=== PATIENT | male | born 1935 | race Caucasian/White ===

== ENCOUNTER 2016-08-14 17:21 | Inpatient (IN) | payer MEDICARE ==
[~2016-08-14] VITALS: Ht 177.8 cm; Wt 75.5 kg
[~2016-08-14 17:21] MED LIST: ASPI-973 PO; CHOL5000 PO; CLON0.1T PO; FELO2.5T8 PO; HYDR-4003 PO; OXYC5TAB72 PO; POLY17PO6 PO
[2016-08-14 17:28] VITALS: BP 133/83; PULSE 68; RESP 18; O2SAT 98
[2016-08-14 18:37] LABS: BASOPHILS % (AUTO) 0.3 % (0-3); EOSINOPHILS % (AUTO) 2.2 % (0-5); MONOCYTES % (AUTO) 7.4 % (4-12); Mean Corpuscular Hemoglobin 30.9 pg (27.0-35.0); Mean Corpuscular Volume 94.2 fL (81-100); NEUTROPHILS % (AUTO) 65.3 % (40-74); Platelet Count 263 bil/L (150-400)
[2016-08-14 18:56] LABS: Magnesium 2.3 mg/dL (1.6-2.6)
[2016-08-14 19:46] VITALS: BP 157/78; PULSE 60; RESP 14; O2SAT 98
--- NOTE | 2016-08-14 20:14 | ED.REPORT ---
HPI-General Illness Date of Service August 14, 2016 ED Provider: Da Hernández MD The pt is a 81 y/o male w/ a hx of hypertension and kidney cancer presenting to the ED complaining of confusion. He reports beginning to lose his memory last night, of what he describes as "small things". One example of this is him forgetting where the water faucet was in his own house. Aside from this, his sister noticed him normal last night and then this morning noted him to have difficulties with word recall. She states he slept most of the day which is not normal. Additionally, he has been experiencing a headache in the L temporal region which he describes as dull. Pt has been having blood pressure problems and has noted his readings to be as high as 190S. He reports Clonidine giving him BP problems and has been using Felodipine as an alternative. He denies weakness, numbness, tingling, vision changes, fever, coughs, chills, or vomiting. Nursing Notes Stated Complaint: LOSS OF BALANCE Chief Complaint: Neuro Symptoms/ Deficits Nursing Notes Reviewed: Yes Allergies: Coded Allergies: iodine (Verified Allergy, Severe, Anaphylaxis, 08/14/16) Scheduled Aspirin (Aspirin) 81 Mg Tablet 81 MG PO DAILY Cholecalciferol (Vitamin D3) (Vitamin D3) 5,000 Unit Capsule 5,000 UNIT PO DAILY Clonidine (Clonidine) 0.2 Mg Tablet 0.2 MG PO BID Felodipine ER (Felodipine ER) 10 Mg Tab.er.24h 10 MG PO HS Lisinopril (Lisinopril) 5 Mg Tablet 5 MG PO DAILY Scheduled PRN Hydrocodone-Acetaminophen 5-325 mg (Hydrocodone-Acetaminophen 5-325 mg) 1 Each Tablet 1 TABLET PO Q4H PRN PRN For Pain Polyethylene Glycol 3350 (Miralax) 17 Gm Powd.pack 17 GM PO DAILY PRN PRN For Constipation oxyCODONE (oxyCODONE) 5 Mg Tablet 5 MG PO Q4H PRN PRN For Moderate Pain General Time Seen by MD: 20:12 Chief Complaint Other (Confusion) Hx Obtained From: Patient Arrived By: Walk-in Sudden in Onset?: Yes Onset Occurred: 1 day ago Symptom Duration: Since onset Location: : Head Quality: Painful Severity: Current: Mild Associated with: Denies: Numb extremities, Vomiting, Weakness Pertinent Negative: Relieved by nothing Recent Healthcare: No recent hospitalization, Recent doctor visit TPA Administration/Criteria Stroke Thrombolytic Therapy : TPA Considered: No TPA Administered Intravenously: No, exclusion criteria (Unknown time of onset) NIH Stroke Scale Level of Consciousness: Alert and responsive (0) Ask Month & Age: 1 question right (1) Open/Close Eyes/Hand Fried Cake Maker: Performs both tasks (0) Horizontal EO Movements: None (0) Visual [place]: Complete hemianopsia (2) Facial Palsy: Normal symmetry (0) Right Arm Motor Drift (10s): No drift 10 sec (0) Left Arm Motor Drift (10s): No drift 10 sec (0) Right Leg Motor Drift (5s): No drift 5 sec (0) Left Leg Motor Drift (5s): No drift 5 sec (0) Limb Ataxia FNF/Heel-Garcia: No ataxia (0) Sensation (Arms/Legs/Face): No sensory loss (0) Language Aphasia: No aphasia, normal (0) Dysarthria: No dysarthria, normal (0) Extinction/Inattention: No exctinct/inattent (0) NIHSS Score: 3 Time NIHSS Performed: 20:24 Date NIHSS Performed: August 14, 2016 Past Medical History Past Medical History Polio Kidney cancer Reports: Hypertension Past Surgical History hiatal hernia repair 1992 eye surgery @ age 5 Reports: Tonsillectomy Family History Heart disease in father, brothers and sister Sister and brother with "open heart surgery." Smoking History Never Smoker Social History Alcohol Use: 1-3 per week Drug Use: Denies drug use Other Social History: Good social support, From out of town, Visiting locally 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 Physical Exam Vital Signs Vital Signs Date Time Temp Pulse Resp B/P Pulse Ox O2 Delivery O2 Flow Rate FiO2 08/14/16 22:11 67 18 147/82 99 Room Air 08/14/16 19:46 60 14 157/78 98 Room Air 08/14/16 17:28 36.5 68 18 133/83 98 Room Air Initial VS: Reviewed General/Constitutional: Awake, Alert Head / Eyes: Atraumatic, Normocephalic ENT: Atraumatic, Airway patent Neck: Atraumatic, Supple, Full range of motion Respiratory / Chest: Atraumatic, Breath sounds NL, Breath sounds = bilat, No rales, No rhonchi, No wheezing Cardiovascular: Heart rate NL, Regular rhythm, Heart sounds NL Back: Atraumatic, Full range of motion Skin: Atraumatic, Color NL, Warm, Dry Neurologic: Speech NL See NIH Interpretation & Diagnostics Lab Results Interpretation Result Diagram: 08/14/16 1824 08/14/16 1824 Test 08/14/16 18:24 White Blood Count 6.9th/mm3 (3.8-10.1) Red Blood Count 4.46mil/mm3 (4.40-5.80) Hemoglobin 13.8g/dL (13.8-17.2) Hematocrit 42.0% (41.0-50.0) Mean Corpuscular Volume 94.2fL (81-100) Mean Corpuscular Hemoglobin 30.9pg (27.0-35.0) Mean Corpuscular Hemoglobin Concent 32.9% (32.0-37.0) Red Cell Distribution Width 13.5% (12.3-15.4) Platelet Count 263bil/L (150-400) Neutrophils (%) (Auto) 65.3% (40-74) Lymphocytes (%) (Auto) 24.5% (14-46) Monocytes (%) (Auto) 7.4% (4-12) Eosinophils (%) (Auto) 2.2% (0-5) Basophils (%) (Auto) 0.3% (0-3) Sodium Level 135mEq/L (134-144) Potassium Level 5.0mEq/L (3.5-5.2) Chloride Level 98mEq/L (97-108) Carbon Dioxide Level 25mmol/L (18-29) Blood Urea Nitrogen 45mg/dL (8-27) Creatinine 1.96mg/dL (0.76-1.27) Estimat Glomerular Filtration Rate 35mL/min (>59) Glucose Level 171mg/dL (60-99) Calcium Level 9.5mg/dL (8.5-10.1) Magnesium Level 2.3mg/dL (1.6-2.6) Total Bilirubin 0.3mg/dL (0.0-1.2) Aspartate Amino Transf (AST/SGOT) 18U/L (0-50) Alanine Aminotransferase (ALT/SGPT) 13U/L (0-44) Alkaline Phosphatase 98U/L (25-160) Total Protein 7.5g/dL (6.4-8.4) Albumin 4.0g/dL (3.4-5.0) Triglycerides Level 175mg/dL (0-149) Cholesterol Level 185mg/dL (100-199) LDL Cholesterol, Calculated 112.000mg/dL (0-99) VLDL Cholesterol 35.000mg/dL HDL Cholesterol 38mg/dL (>39) Cholesterol/HDL Ratio 4.87 (0.0-4.4) Hold Zuñiga Top Tube Received (Received) ECG Interpretation ECG Interpretation: Rhythm Strip Interpretation : Time: 20:20 Rhythm Strip Interpretation: Interpreted by me, Rate (66), Normal sinus rhythm CT Head Interpretation IMPRESSION: 1. Focal attenuation is present in the left occipital lobe suspicious for acute to subacute ischemia. No superimposed hemorrhage. 2. Moderate atrophy and chronic microvascular ischemic changes. Dictated by: Chery Morales M.D. on 08/14/2016 at 21:27 Approved by: Chery Morales M.D. on 08/14/2016 at 21:29 Study: Head CT no contrast Interpretation / Wet Read by: Interpret - Radiologist Re-Eval/Medical Decision Med Decision/Clinical Course I discussed the case with Dr. Garcia from [facility] neurology who did not believe that MR angiogram was indicated during the night because of the odds of finding a lesion worthy of interventional radiology treatment was fleeting with low. Source of Hx: Old records Time of Eval: 20:30 Re-Evaluation/Progress Note: Pt rechecked. Informed pt of need for admission. Pt understands and agrees with plan for admission. All questions addressed. Time of Eval: 22:31 Re-Evaluation/Progress Note: Informed pt of stroke diagnosis based on CT scan. Informed pt of need to admit to hospital. All questions addressed. Consultation : Referral / Consult Name: Tyrese Wharton MD Consulted With: Hospitalist Call Returned at: 21:49 Beet Flumer: Will see patient, Agrees with plan, Accepts admit Note: Discussed pt plan. Counseled Regarding: Diagnosis, Lab results, Need for admission Discharge & Departure Primary Impression: CVA (cerebral vascular accident) CVA mechanism: unspecified Qualified Code: I63.9 - Cerebral infarction, unspecified Additional Impression: Acute kidney failure Acute renal failure type: unspecified Qualified Code: N17.9 - Acute kidney failure, unspecified Disposition: ADMITTED TO HOSPITAL Discharge Condition All VS Reviewed: Yes Referrals: Maida Palomo MD (PCP) Scribe Attestation Portions of this note were transcribed by Marek Muller and Fior Teran. I, Dr. Hernández personally performed the history, physical exam and medical decision- making; I reviewed and confirmed the accuracy of the information in the transcribed note. Signed by: Marek Muller and Thuy Wheeler, 08/14/16 and 213. copies to: Maida Palomo MD, Kirk H MD August 14, 2016 20:14 Marek Muller August 14, 2016 20:25 Fior Teran August 14, 2016 23:45
--- NOTE | 2016-08-14 21:31 | DRSVH ---
PROCEDURE: CT BRAIN WITHOUT CONTRAST ([id number]) INDICATIONS: right hemianopsia TECHNIQUE: Noncontrast 4.5 mm thick angled axial sections acquired from the foramen magnum to the vertex, with c oronal reformats. COMPARISON: None. FINDINGS: Image quality: Excellent. CSF spaces: Basal cisterns are patent. No extra-axial fluid collections. The ventricles are symmet ebony in size and shape. Brain: No intracranial bleeds or masses. There is cerebral volume loss for age, with resultant vent ricular and sulcal prominence. There are periventricular and deep white matter chronic small vessel ischemic changes. There is intracranial internal carotid artery atherosclerosis. Focal low attenuat ion is present in the left occipital lobe. Skull and face: Calvarium and visualized facial bones appear intact, without suspicious lesions. Sinuses: Visualized sinuses and mastoids are clear. IMPRESSION: 1. Focal attenuation is present in the left occipital lobe suspicious for acute to subacute ischemia. No superimposed hemorrhage. 2. Moderate atrophy and chronic microvascular ischemic changes. Dictated by: Chery Morales M.D. on 08/14/2016 at 21:27 Approved by: Chery Morales M.D. on 08/14/2016 at 21:29
[2016-08-14] MEDS ORDERED: Ondansetron 2 mg/mL 2 mL Inj IVPUSH PRN (21:55)
[2016-08-14] MEDS ORDERED: Polyethylene Glycol (PEG) 17 Gm Powder PO PRN (21:55)
[2016-08-14] MEDS ORDERED: Alum-Mag Hydrox-Simeth 30 mL Suspension PO PRN (21:55)
[2016-08-14] MEDS ORDERED: Labetalol 5 mg/mL 4 mL Inj IVPUSH PRN (21:55)
[2016-08-14 22:11] VITALS: BP 147/82; PULSE 67; RESP 18; O2SAT 99
[2016-08-14] MEDS ORDERED: FELO10TA3 PO (22:15)
[2016-08-14] MEDS ORDERED: LISI-571 PO (22:15)
[2016-08-14] MEDS ORDERED: CLON0.2T PO (22:15)
[2016-08-14 23:27] VITALS: BP 147/85; PULSE 98; RESP 20; O2SAT 98
[2016-08-14 23:45] VITALS: PULSE 73
[2016-08-15] VITALS (8 sets, daily range): BP systolic 146–174; BP diastolic 73–88; PULSE 65–72; RESP 16–20; O2SAT 97–100
[2016-08-15] MEDS: Heparin 5,000 Unit/mL Inj SUBQ SCH ×3 (01:05→16:36)
--- NOTE | 2016-08-15 01:13 | PCM.HPMED ---
Subjective Date of Service August 14, 2016 Primary Provider: Admitting Physician: Tyrese Wharton MD Primary Care Physician: Maiad Palomo MD Attending Physician: Tyrese Wharton MD Admit Status: From the Emergency Department, Full Admit, Remote Telemetry Chief Complaint: Confusion History of Present Illness: Juanjo Maya is a 81 yo male with Hypertension and Chronic Kidney disease presenting to [facility] emergency department complaining of confusion. Patient reported feeling well until yesterday morning she noticed some confusion. Patient reported it was hard for him to perform simple tasks around the house like forgetting where the water faucet was in his own house. Symptoms persisted throughout the day. He was aware of this happening and told his sister about this. He noted some deficit in his visual field on the right side. He denied any trouble with his speech and no weakness/numbness noted. He has been experiencing a headache in the L temporal region which he describes as dull. He also describes his SBP getting as high as 195. He does not take any Aspirin or Cholesterol medications currently. No previous Strokes or Myocardial infarction Patient decided to stop his clonidine completely 2 days ago despite instruction that this well be slowly weaned off. Clinic records reviewed: In June of 2014, he was found to have HTN and was started on Lisinopril 10 mg daily. His BP was well controlled until the medication was stopped due to rising of serum creatinine from 1.18 to 1.96. He was then initiated on other antihypertensive medications in which he had unpleasant reactions from them. Amlodipine caused severe LE swelling. HCTZ and metoprolol caused dizziness and syncopal episode. Patient was referred to for possible left renal artery stent placement. He ended up seeing a gauntlet pairer at . A repeat renal Duplex showed no left artery stenosis, 11.5 cm, right renal atrophy identified, 7.5 cm. Lisinopril was restarted 5 mg daily. He was able to discontinue felodipine and clonidine patch. He is now taking clonidine 0.2 mg BID and lisinopril 5 mg daily. His BP has been improved ~ 130-140/70-80. Plan from Dr Rangel was to increase lisinopril to 10 mg daily and wean off on clonidine. Case discussed with Dr Hernández, CT showed Acute on Subacute left occipital lobe ischemia. She discussed the case with [facility] neurology who recommended no TPA but admission to complete workup with a MRI without contrast Review of Systems: Pertinent positives as noted in HPI. All other systems were reviewed and are negative Allergies Coded Allergies: iodine (Verified Allergy, Severe, Anaphylaxis, 08/14/16) Home Medications From [facility], NOT YET CONFIRMED Juanjo Maya. 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 Surgical History Hiatal hernia repair 1992 Eye surgery @ age 5 Tonsillectomy Nose surgery Dental implants Family History Heart disease in father, brothers and sister Sister and brother with "open heart surgery." Father of heart attack age 64 Mother lived till 80 Social History Hx Alcohol Use: No Hx Substance Use: No Hx Tobacco Use: No Smoking Status: Never Smoker Living Arrangement: with Family (with sister (Eula)) Exam Vital Signs Vital Sign - Last Date Time Temp Pulse Resp B/P Pulse Ox O2 Delivery O2 Flow Rate FiO2 08/14/16 22:11 67 18 147/82 99 Room Air 08/14/16 17:28 36.5 Exam General: Alert, Oriented X3, Cooperative, No acute Distress Eyes: PERRLA, Scleral Anicteric Mouth: Mouth Normal, Mucous Membranes Moist/[place] Neck: Supple, no Thyromegaly, trachea central. Chest & Lungs: Clear to auscultation & percussion, No adventitious breath sounds, no crackles, no wheeze Cardiovascular: Normal S1, Normal S2, No Murmurs/Rubs/Gallops, Regular Rate/ Rhythm, (No JVD, no peripheral edema) Pulses: Radial (present and equal), Dorsalis Pedi (present and equal) Abdomen: Soft, Non-tender, Non-distended, Normoactive bowel tones. Musculoskeletal: Unremarkable. Normal range of motion, no swollen or erythematous joints Extremities: No edema, no cyanosis, no clubbing. Skin: No rashes. Warm and dry, no erythematous areas Lymphatic: Lymph nodes Cervical and Axillary not palpable. Neurological: Mental Status: Alert and oriented without slurred speech Cranial nerves: PERRL. Extraocular movements are intact with no nystagmus. The face is symmetric, tongue midline. Visual field Complete hemianopsia Motor: Normal tone. She is able to hold both arms and legs up off the bed. Good slip maker bilaterally Sensation: Intact to light touch throughout Coordination: Cerebellar testing intact Reflexes: 2 throughout, toes withdraw Gait: not tested Lab and Diagnostics Labs Laboratory Tests Test 08/14/16 18:24 White Blood Count 6.9th/mm3 (3.8-10.1) Red Blood Count 4.46mil/mm3 (4.40-5.80) Hemoglobin 13.8g/dL (13.8-17.2) Hematocrit 42.0% (41.0-50.0) Mean Corpuscular Volume 94.2fL (81-100) Mean Corpuscular Hemoglobin 30.9pg (27.0-35.0) Mean Corpuscular Hemoglobin Concent 32.9% (32.0-37.0) Red Cell Distribution Width 13.5% (12.3-15.4) Platelet Count 263bil/L (150-400) Neutrophils (%) (Auto) 65.3% (40-74) Lymphocytes (%) (Auto) 24.5% (14-46) Monocytes (%) (Auto) 7.4% (4-12) Eosinophils (%) (Auto) 2.2% (0-5) Basophils (%) (Auto) 0.3% (0-3) Sodium Level 135mEq/L (134-144) Potassium Level 5.0mEq/L (3.5-5.2) Chloride Level 98mEq/L (97-108) Carbon Dioxide Level 25mmol/L (18-29) Blood Urea Nitrogen 45mg/dL (8-27) Creatinine 1.96mg/dL (0.76-1.27) Estimat Glomerular Filtration Rate 35mL/min (>59) Glucose Level 171mg/dL (60-99) Calcium Level 9.5mg/dL (8.5-10.1) Magnesium Level 2.3mg/dL (1.6-2.6) Total Bilirubin 0.3mg/dL (0.0-1.2) Aspartate Amino Transf (AST/SGOT) 18U/L (0-50) Alanine Aminotransferase (ALT/SGPT) 13U/L (0-44) Alkaline Phosphatase 98U/L (25-160) Total Protein 7.5g/dL (6.4-8.4) Albumin 4.0g/dL (3.4-5.0) Triglycerides Level 175mg/dL (0-149) Cholesterol Level 185mg/dL (100-199) LDL Cholesterol, Calculated 112.000mg/dL (0-99) VLDL Cholesterol 35.000mg/dL HDL Cholesterol 38mg/dL (>39) Cholesterol/HDL Ratio 4.87 (0.0-4.4) Hold Zuñiga Top Tube Received (Received) Result Diagram: 08/14/16 1824 08/14/161823 X-Rays, CTs and MRIs CT BRAIN WITHOUT CONTRAST 08/14 IMPRESSION: 1. Focal attenuation is present in the left occipital lobe suspicious for acute to subacute ischemia. No superimposed hemorrhage. 2. Moderate atrophy and chronic microvascular ischemic changes. Dictated by: Chery Morales M.D. on 08/14/2016 at 21:27 Approved by: Chery Morales M.D. on 08/14/2016 at 21:29 --- Assessment & Plan Juanjo Maya is a 81 yo male with Hypertension and Chronic Kidney disease presenting to [facility] emergency department complaining of confusion. 1 Acute on Subacute left occipital lobe ischemia. Present on admission Stroke risk factors includes age, Uncontrolled Hypertension and Family history of coronary artery disease. Patient not a candidate for TPA, [facility] Neurology sprinkler helper in this decision. Location of Stroke is consistent with current symptoms - MRI brain without contrast, complete echo and Carotid ultrasound - Aspirin for antiplatelet and secondary prevention (discussed with patient daily Aspirin to prevent Strokes as well as immediately calling 911 for further Stroke symptoms in the future) - checking Lipid panel - Physical, Speech and Occupational therapy assessment 2 Acute Encephalopathy due to Stroke. Present on admission. 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 Currently at baseline renal function - avoid nephrotoxic insults and no contrast studies - Acetaminophen as needed for mild pain/fever/headache - Bowel regimen as needed - Antiemetic as needed Patient admitted under inpatient status with expected length of stay > 2 midnights for severity of present symptoms, complexities of treatment plan and risk for adverse event . Resuscitation Status: CPR: Attempt Resuscitation Tyrese Wharton MD August 14, 2016 22:53
--- NOTE | 2016-08-15 01:29 | PCM.ADCARE ---
Advance Care Planning Note Purpose of Encounter: Active Diagnoses: Chronic Kidney disease Stage 3 Hypertension with Hypertensive heart disease and kidney disease Acute Occipital stroke These active diagnoses are sufficient risk that focused discussion on advance car planning is indicated in order to allow the patient to thoughtfully consider personal goals of care and if situations arise that prevent the ability to personally give input to insure appropriate representation of their personal desires through documentation or informed surrogate decision makers Parties in Attendance: Patient and me Decisional Capacity: Good Goals of Care Determinations: I reviewed prognosis on his chronic kidney disease and some possible function decline with his current Stroke, we also discussed his desires for ongoing aggressive care, including potential intubation and mechanical ventilation as well as CPR. Also discussed who would speak on his behalf should he be unable to do so, he states his sister Eula Maya will be his proxy and power of state's attorney (he will work on the paperwork for this). He understands his conditions for his kidneys carry poor prognosis with no good treatment options available but he would wanna fight it and at least try all resuscitative measure first and then decide. CODE STATUS: Full Code Time Spent Adv.Care Planning: Total time spent [id number] in education and discussion directly related to Advance Care Plannin minutes Tyrese Wharton MD August 15, 2016 01:29
[2016-08-15 10:55] LABS: BASOPHILS % (AUTO) 0.3 % (0-3); EOSINOPHILS % (AUTO) 2.1 % (0-5); MONOCYTES % (AUTO) 8.6 % (4-12); Mean Corpuscular Hemoglobin 30.8 pg (27.0-35.0); Mean Corpuscular Volume 93.4 fL (81-100); NEUTROPHILS % (AUTO) 59.8 % (40-74); Platelet Count 260 bil/L (150-400)
[2016-08-15 11:38] LABS: Magnesium 2.3 mg/dL (1.6-2.6)
--- NOTE | 2016-08-15 13:17 | CONS ---
[address] [address] CONSULTATION REPORT PATIENT: ELIJAH GRANDA : 1935 MR#: [id number] ADMIT: 08/14/2016 JOB ID: [id number] CORRECTED REPORT: RENAL CONSULTATION: DATE OF SERVICE: 08/15/2016 HISTORY: The patient is a very pleasant, 81-year-old, white male who was admitted to [facility] for a left occipital lobe stroke. He has been seen by Dr. Palomo in the past for chronic kidney disease and hypertension. Renal consultation is being sought for further assistance with his hypertension and chronic kidney disease. He states that yesterday when he woke up, he was quite disoriented and had some mild ataxia. He also states that he had some expressive aphasia but no dysphagia. He also states that he had a right hemianopsia. In the emergency department, a CT revealed an evolving infarct in the left temporal lobe. He was subsequently admitted. This morning he states that almost all of his confusion and visual problems have resolved. He denies any numbness, paresthesia, or weakness in either extremity. His blood pressure upon admission was initially in the 150 range. He has a history of some mild chronic kidney disease and hypertension for the last several years. He was seen by Dr. Palomo initially for hypertension and he has had a subsequent workup for some mild chronic kidney disease. He also has a history of prostate cancer for which he underwent isolated beam radiation therapy. Currently he states he has not had any problems with difficulty with urination, incontinence, urgency or hesitancy. Furthermore, he denies history of any prior hematuria, proteinuria, recurrent urinary tract infections, recurrent renal lithiasis, frequent use of nonsteroidal anti-inflammatories, diabetes, rheumatoid arthritis, lupus or history of any cardiac disease. He states that prior to this event, he was quite active in his numerous activities of daily living which he is able to perform without significant problems or restriction. 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 He denies a history of any prior neurological event, seizure, asthma, emphysema, cough, wheezing, myocardial infarction, congestive heart failure, hepatitis, or other malignancies. He denies history of any thyroid illness. PAST SURGICAL HISTORY: Significant for hiatal hernia repair, eye surgery, tonsillectomy, rhinoseptoplasty, and dental implants. ALLERGIES: IODINE. SOCIAL HISTORY: He denies the use of alcohol, tobacco or illicit drugs. He lives with his sister. As noted above, he is still quite active in his numerous activities of daily living which he performs without problems or restriction. FAMILY HISTORY: Remarkable for heart disease. MEDICATIONS: At time of my evaluation, include aspirin, atorvastatin. REVIEW OF SYSTEMS: Otherwise is unremarkable for any severe headache, prior amaurosis fugax, scotomas, cough, wheezing, chest pain, shortness of breath, dyspnea on exertion, paroxysmal nocturnal dyspnea, lower extremity edema, nausea, vomiting, constipation, diarrhea, anorexia, fever, chills, or rashes. He states that over the last year he has had approximately a 25 pound weight loss; however, he states that he eats less and is quite active. PHYSICAL EXAMINATION: Revealed a well-developed, quite healthy appearing, 81-year-old, white male who was alert and oriented x3, in no distress at time of my evaluation. HEENT: Examination was unremarkable. Sclerae, cornea, and conjunctivae and extra-ocular muscles were all within normal limits. Pupils reactive. Neck is supple without adenopathy, thyromegaly or jugular venous distention. Lungs are clear to auscultation. Heart was regular and rhythmical with a soft systolic murmur. Abdomen is soft, without any tenderness, rebound, guarding, masses or hepatosplenomegaly. Extremities did not show any evidence of any clubbing, cyanosis, or edema. Skin turgor was good. There is no evidence of any rashes. Neurological exam was remarkable only for some mild circumlocution when asked specific questions. LABORATORY EXAMINATION: This morning, his white count was 6.3, hemoglobin 14.0, hematocrit 42.4. Red cell indices, platelet count and differential were normal. Sodium is 140, potassium 5.0, chloride of 100, bicarb of 24. BUN and creatinine were 40 and 2.05. Glucose was 100. liver function studies were unremarkable. Urinalysis was not obtained. IMPRESSION: 1. Hypertension with hypertensive heart disease and hypertensive nephrosclerosis. 2. Chronic kidney disease stage 3. 3. Chronic interstitial nephritis. RECOMMENDATION: I would like to keep his systolic blood pressure between 140 and 160. After several days, then we can bring it down to a more normal range. Should he require any antihypertensive medications, I would recommend oral labetalol 100 mg every 8-12 hours. I would also try to avoid clonidine at this time. Once again, I would like to thank you for allowing me to participate in the care of this most pleasant, interesting patient. I will be following him closely with you. Corrected by OSCAR 08/31/16 at 1:02pm DOS
--- NOTE | 2016-08-15 14:02 | DRSVH ---
PROCEDURE: MRI BRAIN WITHOUT CONTRAST ([id number]) INDICATIONS: stroke TECHNIQUE: Non-contrast axial T1 spin echo, axial T2 fast spin echo, sagittal and axial FLAIR, coronal T2 fast s pin echo, axial gradient echo, axial diffusion and ADC through the brain. COMPARISON: [facility], CT, CT BRAIN WO CON, 08/14/2016, 20:58. FINDINGS: Image quality: Excellent. CSF spaces: Ventricles appear symmetric in size and shape. Basal cisterns are patent. No extra-axi al fluid collections. Brain: No intracranial bleeds or mass effects. There is cerebral volume loss for age. There are pe riventricular and deep white matter chronic small vessel ischemic changes. Brainstem appears normal. Diffusion-weighted images demonstrate hyperintensity within the left occipital lobe with correspond ing hypointense ADC and hyperintense T2/FLAIR signal intensity. No associated hemorrhage. No chronic ischemic insults. Normal intravascular flow voids are present. Skull and face: Calvarial bone marrow is normal in signal. Orbits are normal. Sinuses: Sinuses and mastoids are clear. IMPRESSION: 1. Acute to subacute ischemia in the left occipital lobe without superimposed hemorrhage. 2. Mild atrophy and chronic microvascular ischemic changes. Dictated by: Chery Morales M.D. on 08/15/2016 at 13:58 Approved by: Chery Morales M.D. on 08/15/2016 at 14:01
--- NOTE | 2016-08-15 17:50 | PCM.PNMED ---
Subjective Date of Service August 15, 2016 Subjective Juanjo Maya is a 81 yo male with Hypertension and Chronic Kidney disease presenting to [facility] emergency department complaining of confusion. Currently under treatment and evaluation for a stroke. Hospital day #2. Overnight: no acute events reported. Today: Patient appears in good spirits and has minimal complaints. He does note some visual field deficit, but denies any weakness. He states that he is a bit unstable in his gait which is not normal for him. He denies any pain, shortness of breath, palpitations, or loss of consciousness. The remainder of review of systems is negative except as noted above. Exam Vital Signs Vital Sign - Last Date Time Temp Pulse Resp B/P Pulse Ox O2 Delivery O2 Flow Rate FiO2 08/15/16 16:17 37.2 16 160/88 98 Room Air 08/15/16 12:19 72 Intake and Output 08/14/16 08/14/16 08/15/16 Cumulative From/Thru 15:00 23:00 07:00 08/14/16 17:28 - 08/15/16 06:52 Intake Total 0 ml 0 ml Output Total 625 ml 625 ml Balance -625 ml -625 ml Intake Oral 0 ml 0 ml Output Urine Total 625 ml 625 ml Exam General: Alert, Oriented X3, Cooperative, No acute Distress Eyes: PERRLA, Scleral Anicteric Mouth: Mouth Normal, Mucous Membranes Moist/[place] Neck: Supple, no Thyromegaly, trachea central. Chest & Lungs: Clear to auscultation & percussion, No adventitious breath sounds, no crackles, no wheeze Cardiovascular: Normal S1, Normal S2, No Murmurs/Rubs/Gallops, Regular Rate/ Rhythm, (No JVD, no peripheral edema) Pulses: Radial (present and equal), Dorsalis Pedi (present and equal) Abdomen: Soft, Non-tender, Non-distended, Normoactive bowel tones. Musculoskeletal: Unremarkable. Normal range of motion, no swollen or erythematous joints Extremities: No edema, no cyanosis, no clubbing. Skin: No rashes. Warm and dry, no erythematous areas Lymphatic: Lymph nodes Cervical and Axillary not palpable. Neurological: Mental Status: Alert and oriented without slurred speech Cranial nerves: PERRL. Extraocular movements are intact with no nystagmus. The face is symmetric, tongue midline. Visual field Complete hemianopsia Motor: Normal tone. She is able to hold both arms and legs up off the bed. 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 IVs and Medications Medications Reviewed: Medications were reviewed in detail Lab and Diagnostics Result Diagram: 08/15/16 1047 08/15/16 1047 X-Rays, CTs and MRIs CT BRAIN WITHOUT CONTRAST 08/14 IMPRESSION: 1. Focal attenuation is present in the left occipital lobe suspicious for acute to subacute ischemia. No superimposed hemorrhage. 2. Moderate atrophy and chronic microvascular ischemic changes. Dictated by: Chery Morales M.D. on 08/14/2016 at 21:27 Approved by: Chery Morales M.D. on 08/14/2016 at 21:29 MRI BRAIN WITHOUT CONTRAST IMPRESSION: 1. Acute to subacute ischemia in the left occipital lobe without superimposed hemorrhage. 2. Mild atrophy and chronic microvascular ischemic changes. Dictated by: Chery Morales M.D. on 08/15/2016 at 13:58 Assessment & Plan Juanjo Maya is a 81 yo male with Hypertension and Chronic Kidney disease presenting to [facility] emergency department complaining of confusion. Currently under treatment and evaluation for a stroke. Hospital day #2. 1 Acute to subacute ischemia in the left occipital lobe. Present on admission. Active. Stroke risk factors includes age, Uncontrolled Hypertension and Family history of coronary artery disease. 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 Location of Stroke is consistent with current symptoms - MRI brain without contrast confirmed stroke - complete echo pending - Carotid ultrasound showing 70-90% stenosis on the right side per verbal report. - Aspirin for antiplatelet and secondary prevention (Dr. Wharton discussed with patient daily Aspirin to prevent Strokes as well as immediately calling 911 for further Stroke symptoms in the future) - LDL above goal of 70, will start patient on statin. - Physical, Speech and Occupational therapy assessment 2 Acute Encephalopathy due to Stroke. Present on admission. Resolved No other causes identified such as Infection or Metabolic derangements - high risk for delirium - avoid psychoactive medications such as Benzodiazepine and high dose narcotics 3 Uncontrolled Hypertension Suspect the patient has rebound hypertension a result of stopping Clonidine abruptly - hold antihypertensive at least for now to allow permissive hypertension for now. - Nephrology consulted to help with decision of antihypertensive agents. Per Dr. Turcios's recommendation will start patient on labetalol 100 mg every 8-12 hours tomorrow. - discuss importance of BP control with patient to avoid another Stroke and follow instructions concerning medications 4 Chronic Kidney disease Due to Hypertensive Nephrosclerosis. Currently at baseline renal function - avoid nephrotoxic insults and no contrast studies - Acetaminophen as needed for mild pain/fever/headache - Bowel regimen as needed - Antiemetic as needed Disposition: Anticipate patient can be discharged tomorrow or the day after once his studies are completed and his blood pressure is controlled. VTE Mechanical Devices: Intermittant Pneumatic CD Resuscitation Status: CPR: Attempt Resuscitation Attending Statement Patient was seen and examined with Dr. Barclay. Chart was reviewed and agree with the above progress note. Colette Barclay DO August 15, 2016 17:39 Robbi Wu MD August 15, 2016 19:22
[2016-08-16] MEDS: Heparin 5,000 Unit/mL Inj SUBQ SCH ×3 (01:42→16:54)
[2016-08-16 03:36] LABS: BASOPHILS % (AUTO) 0.4 % (0-3); EOSINOPHILS % (AUTO) 5.5 % (0-5); MONOCYTES % (AUTO) 11.2 % (4-12); Mean Corpuscular Hemoglobin 30.9 pg (27.0-35.0); Mean Corpuscular Volume 92.9 fL (81-100); NEUTROPHILS % (AUTO) 49.8 % (40-74); Platelet Count 252 bil/L (150-400)
[2016-08-16 03:56] LABS: ERYTHROCYTE SEDIMENTATION RATE 32 mm/hr (0-30)
[2016-08-16 03:59] LABS: Magnesium 2.2 mg/dL (1.6-2.6); Phosphorus 3.7 mg/dL (2.5-4.9)
[2016-08-16 04:58] VITALS: BP 149/85; PULSE 81; RESP 18; O2SAT 99
[2016-08-16 07:46] VITALS: BP 173/98; PULSE 73; RESP 18; O2SAT 99
[2016-08-16 10:36] VITALS: PULSE 68
[2016-08-16 11:40] VITALS: BP 151/84; PULSE 76; RESP 18; O2SAT 98
--- NOTE | 2016-08-16 11:56 | DRSVH ---
PROCEDURE: US BILATERAL DUPLEX DOPPLER IMAGING OF THE CAROTIDS ([id number]) INDICATIONS: stroke TECHNIQUE: Color and pulse Doppler interrogation was performed of both carotid systems, with image documentation and velocity measurements. COMPARISON: [facility], , [facility] [employer], 03/17/2016, 14:07. FINDINGS: All stenosis calculations are based on NASCET criteria. Right side: Brachial blood pressure: 147/82 mm Hg. Common Carotid Artery(Distal) PSV: 104.80 cm/s Internal Carotid Artery PSV- Proximal: 262.20 cm/s Mid-lon.90 cm/s Distal: 108 cm/s EDV - Proximal: 95.50 cm/s Mid-lon.20 cm/s Distal: 45.30 cm/s External Carotid Artery(Proximal) PSV: 170.40 cm/s, 168.30 cm/s ICA/CCA PSV ratio: 3.1 Goodson scale imaging description: Moderate atheromatous plaque Percent internal carotid artery stenosis: >70% . Vertebral artery: Flow direction is antegrade. Left side: Brachial blood pressure: Not obtained Common Carotid Artery(Distal) PSV: 84.80 cm/s Internal Carotid Artery PSV - Proximal: 183.20 cm/s Mid-lon.10 cm/s Distal: 92.50 cm/s EDV - Proximal: 33.80 cm/s Mid-lon.50 cm/s Distal: 18.30 cm/s External Carotid Artery(Proximal) PSV: 59.60 cm/s ICA/CCA PSV ratio: 2.2 Goodson scale imaging description: Moderate atheromatous plaque Percent internal carotid artery stenosis: 50-69% . Vertebral artery: Flow direction is antegrade. IMPRESSION: 1. There is greater than 70% stenosis in the right internal carotid artery via NASCET criteria. 2. There is 50-69% stenosis via NASCET criteria. 3. Findings discussed via telephone [phone] at 7:55 AM on 08/15/[address] Wu. Dictated by: Demetri Felder M.D. on 08/15/2016 at 7:47 Approved by: Demetri Felder M.D. on 08/15/2016 at 7:54
[2016-08-16 15:40] VITALS: BP 147/80; PULSE 79; RESP 18; O2SAT 99
--- NOTE | 2016-08-16 16:54 | PCM.PNMED ---
Subjective Date of Service August 16, 2016 Subjective Juanjo Maya is a 81 yo male with Hypertension and Chronic Kidney disease presenting to [facility] emergency department complaining of confusion. Currently under treatment and evaluation for a stroke. Hospital day #3. Overnight: No acute events reported. Today: The patient notes that he is doing much better today. He notes that his gait is significantly improved but his visual field deficit is still present and unchanged. He denies any pain, shortness of breath, palpitations, or loss of consciousness. The remainder of review of systems is negative except as noted above. Exam Vital Signs Vital Sign - Last Date Time Temp Pulse Resp B/P Pulse Ox O2 Delivery O2 Flow Rate FiO2 08/16/16 13:58 Room Air 08/16/16 11:40 36.6 76 18 151/84 98 Intake and Output 08/15/16 08/15/16 08/16/16 Cumulative From/Thru 14:59 22:59 06:59 08/14/16 17:28 - 08/16/16 05:11 Intake Total 440 ml 626 ml 1066 ml Output Total 500 ml 400 ml 1525 ml Balance -60 ml 226 ml -459 ml Intake Oral 440 ml 626 ml 1066 ml Output Urine Total 500 ml 400 ml 1525 ml Exam General: Alert, Oriented X3, Cooperative, No acute Distress Eyes: PERRLA, Scleral Anicteric Mouth: Mouth Normal, Mucous Membranes Moist/[place] Neck: Supple, no Thyromegaly, trachea central. Chest & Lungs: Clear to auscultation & percussion, No adventitious breath sounds, no crackles, no wheeze Cardiovascular: Normal S1, Normal S2, No Murmurs/Rubs/Gallops, Regular Rate/ Rhythm, (No JVD, no peripheral edema) Pulses: Radial (present and equal), Dorsalis Pedi (present and equal) Abdomen: Soft, Non-tender, Non-distended, Normoactive bowel tones. Musculoskeletal: Unremarkable. Normal range of motion, no swollen or erythematous joints Extremities: No edema, no cyanosis, no clubbing. Skin: No rashes. Warm and dry, no erythematous areas Lymphatic: Lymph nodes Cervical and Axillary not palpable. Neurological: Mental Status: Alert and oriented without slurred speech Cranial nerves: PERRL. Extraocular movements are intact with no nystagmus. The face is symmetric, tongue midline. Visual field Complete hemianopsia with loss of peripheral vision on the right. Normal tone of bilateral upper extremities. No gait deficit reported. IVs and Medications Medications Reviewed: Medications were reviewed in detail Lab and Diagnostics Result Diagram: 08/16/1631908/16/16319 X-Rays, CTs and MRIs CT BRAIN WITHOUT CONTRAST 08/14 IMPRESSION: 1. Focal attenuation is present in the left occipital lobe suspicious for acute to subacute ischemia. No superimposed hemorrhage. 2. Moderate atrophy and chronic microvascular ischemic changes. Dictated by: Chery Morales M.D. on 08/14/2016 at 21:27 Approved by: Chery Morales M.D. on 08/14/2016 at 21:29 MRI BRAIN WITHOUT CONTRAST IMPRESSION: 1. Acute to subacute ischemia in the left occipital lobe without superimposed hemorrhage. 2. Mild atrophy and chronic microvascular ischemic changes. Dictated by: Chery Morales M.D. on 08/15/2016 at 13:58 US BILATERAL DUPLEX DOPPLER IMAGING OF THE CAROTIDS IMPRESSION: 1. There is greater than 70% stenosis in the right internal carotid artery via NASCET criteria. 2. There is 50-69% stenosis via NASCET criteria. 3. Findings discussed via telephone [phone] at 7:55 AM on 08/15/[address] Wu. Dictated by: Demetri Felder M.D. on 08/15/2016 at 7:47 Assessment & Plan Juanjo Maya is a 81 yo male with Hypertension and Chronic Kidney disease presenting to [facility] emergency department complaining of confusion. Currently under treatment and evaluation for a stroke. Hospital day #2. 1 Acute to subacute ischemia in the left occipital lobe. Present on admission. Active. Stroke risk factors includes age, Uncontrolled Hypertension and Family history of coronary artery disease. 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 Location of Stroke is consistent with current symptoms - MRI brain without contrast confirmed stroke - complete echo pending - Carotid ultrasound showing >70% stenosis on the right side. Patient will need outpatient consultation with vascular surgery. - Aspirin for antiplatelet and secondary prevention (Dr. Wharton discussed with patient daily Aspirin to prevent Strokes as well as immediately calling 911 for further Stroke symptoms in the future) - LDL above goal of 70, will start patient on statin. - Physical, Speech and Occupational therapy assessments completed 2 Acute Encephalopathy due to Stroke. Present on admission. Resolved No other causes identified such as Infection or Metabolic derangements - The patient is at high risk for delirium - Continue to avoid psychoactive medications such as Benzodiazepine and high dose narcotics 3 Uncontrolled Hypertension Suspect the patient has rebound hypertension a result of stopping Clonidine abruptly - Nephrology consulted to help with decision of antihypertensive agents. Per Dr. Turcios's recommendation will start patient on labetalol 100 mg every 12 hours today - We have discussed the importance of BP control with patient to avoid another Stroke and follow instructions concerning medications, he verbalizes understanding. 4 Chronic Kidney disease Due to Hypertensive Nephrosclerosis. Currently at baseline renal function - We will avoid nephrotoxic insults and no contrast studies - Acetaminophen as needed for mild pain/fever/headache - Bowel regimen as needed - Antiemetic as needed Disposition: Anticipate patient can be discharged tomorrow once his studies are completed and his blood pressure is controlled. Pain Evaluation: Adequate Pain Control VTE Mechanical Devices: Intermittant Pneumatic CD Resuscitation Status: CPR: Attempt Resuscitation Attending Statement Patient was seen and examined with Dr. Barclay. Chart reviewed and agree with the above progress note. Colette Barclay DO August 16, 2016 16:48 Robbi Wu MD August 16, 2016 19:42
--- NOTE | 2016-08-16 18:32 | PCM.PNNEPH ---
Subjective Date of Service August 16, 2016 Subjective Patient has had some mild improvement but still has persistent hemianopsia. His systolic blood pressures have ranged 140 and 170. He denies any headache, chest pain, shortness of breath, nausea or vomiting. This morning his sodium is 139, potassium 4.5, chloride 101, bicarbonate 25, BUN and creatinine were 41.77. His sedimentation rate is 32 word echocardiogram has been ordered. Doppler carotid artery shows a greater than 70% stenosis of the right internal carotid artery and 50-60% stenosis of the left carotid artery. Exam Vital Signs Vital Sign - Last Date Time Temp Pulse Resp B/P Pulse Ox O2 Delivery O2 Flow Rate FiO2 08/16/16 13:58 Room Air 08/16/16 11:40 36.6 76 18 151/84 98 Intake and Output 08/15/16 08/15/16 08/16/16 Cumulative From/Thru 15:00 23:00 07:00 08/14/16 17:28 - 08/16/16 05:11 Intake Total 440 ml 626 ml 1066 ml Output Total 500 ml 400 ml 1525 ml Balance -60 ml 226 ml -459 ml Intake Oral 440 ml 626 ml 1066 ml Output Urine Total 500 ml 400 ml 1525 ml Exam Neck is supple without adenopathy, thyromegaly, or jugular venous distention. Lungs were clear to auscultation. Heart is regular and rhythmical with a soft systolic murmur. Abdomen is soft without any tenderness, rebound, guarding, masses, or hepatosplenomegaly. Reason for any evidence of any clubbing, cyanosis, or edema. Skin turgor is good and there is no evidence of any rashes. Lab and Diagnostics Result Diagram: 08/16/16 0320 08/16/16 0320 X-Rays, CTs and MRIs CT BRAIN WITHOUT CONTRAST 08/14 IMPRESSION: 1. Focal attenuation is present in the left occipital lobe suspicious for acute to subacute ischemia. No superimposed hemorrhage. 2. Moderate atrophy and chronic microvascular ischemic changes. Dictated by: Chery Morales M.D. on 08/14/2016 at 21:27 Approved by: Chery Morales M.D. on 08/14/2016 at 21:29 MRI BRAIN WITHOUT CONTRAST IMPRESSION: 1. Acute to subacute ischemia in the left occipital lobe without superimposed hemorrhage. 2. Mild atrophy and chronic microvascular ischemic changes. Dictated by: Chery Morales M.D. on 08/15/2016 at 13:58 US BILATERAL DUPLEX DOPPLER IMAGING OF THE CAROTIDS IMPRESSION: 1. There is greater than 70% stenosis in the right internal carotid artery via NASCET criteria. 2. There is 50-69% stenosis via NASCET criteria. 3. Findings discussed via telephone [phone] at 7:55 AM on 08/15/[address] Wu. Dictated by: Demetri Felder M.D. on 08/15/2016 at 7:47 Plan Impression Impression #1 TIA #2 hypertension with hypertensive heart disease and hypertensive sclerosis #360 daily stage III Recommendations #104 in May echocardiogram. I would also like to start lisinopril 5 mg at at bedtime to begin this evening. Jermaine Turcios DO August 16, 2016 18:32
[2016-08-16 21:03] VITALS: BP 149/90; PULSE 70; RESP 18; O2SAT 98
[2016-08-17] VITALS (7 sets, daily range): BP systolic 138–156; BP diastolic 86–91; PULSE 63–71; RESP 16–18; O2SAT 97–99
[2016-08-17] MEDS: Heparin 5,000 Unit/mL Inj SUBQ SCH ×3 (00:38→16:30)
--- NOTE | 2016-08-17 11:57 | DRSVH ---
[facility] [address] [place] [address] Echocardiogram Report Name: ELIJAH GRANDA DStudy Date: 08/17/2016 Height: 70 in Hospital Exam Location: [facility] Weight: 166 lb Gender: Male BSA: 1.9 m2 : 1935 Age: 81 yrs BP: 156/88 mmHg Reason For Study: Stroke Ordering Physician: Performed By: [facility] Interpretation Summary The left ventricle is normal in size. Left ventricular systolic function is normal without focal wall motion abnormalities. The ejection fraction is estimated to be 60-65%. Assessment of diastolic parameters indicates a relaxation abnormality of the left ventricle, consistent with normal filling pressures. The right ventricle is normal in size and function. Pulmonary artery pressures cannot be estimated because of the lack of a measurable TR jet velocity. Both atria are normal in size. There is no Doppler evidence for an interatrial shunt. There is no significant valvular heart disease. The aortic root is normal size. No obvious evidence source for cardioembolic CVA/TIA. Procedure: A two-dimensional transthoracic echocardiogram with color flow and Doppler was performed. The study quality was technically adequate. There is no prior echocardiogram noted for this patient. The patient was in normal sinus rhythm during the exam. Left Ventricle: The left ventricle is normal in size. There is normal left ventricular wall thickness. Left ventricular systolic function is normal without focal wall motion abnormalities. The ejection fraction is estimated to be 60-65%. Spectral Doppler of the mitral valve is reversed, with an E/A wave ratio < 0.8. Assessment of diastolic parameters indicates a relaxation abnormality of the left ventricle, consistent with normal filling pressures. Right Ventricle: The right ventricle is normal in size and function. Atria: Both atria are normal in size. There is no Doppler evidence for an interatrial shunt. Mitral Valve: There is mild mitral annular calcification. There is trace mitral regurgitation. Aortic Valve: The aortic valve is not well visualized. The aortic valve is mildly calcified. There is no aortic valve stenosis. No aortic regurgitation is present. Tricuspid Valve: The tricuspid valve is normal in structure and function. There is a trace or physiologic amount of tricuspid regurgitation. Pulmonary artery pressures cannot be estimated because of the lack of a measurable TR jet velocity. Pulmonic Valve: The pulmonic valve is normal in structure and function. The pulmonic valve is best visualized from subcostal view. There is trace pulmonic regurgitation. There is no significant valvular heart disease. Great Vessels: The aortic root is normal size. The ascending aorta is mildly enlarged. The aortic arch is normal in size. The IVC is of normal diameter and collapses less than 50% with a sniff. This suggests a right atrial pressure of 8 mm Hg. Pericardium/ Pleura There is no pericardial effusion. MMode/2D Measurements & Calculations LVIDd: 4.7 cm RA long axis LVOT diam: 2.1 cm LVIDs: 2.5 cm LA A2 area: 15.6 cm Ao root diam FS: 47.1 % LA A4 area: 17.0 cm RA area IVSd: 1.0 cm LA length (vol) Aortic Jxn: 2.5 cm LVPWd: 0.92 cm : 13.0 cm asc Aorta Diam LA vol: 42.9 ml RA vol LA vol index : 32.5 ml Ao Arch Diam (Prox RA Trans): 2.7 cm : 16.8 mm2 IVC diam: 1.5 cm LV chaudhary. diameter/BSA LV sys. diameter/BSA RVD1 (basal) (cm/m^2): 2.5 (cm/m^2): 1.3 Doppler Measurements & Calculations Ao V2 max MV E max yifan MV E/A: 0.66 PA V2 max : 188.5 cm/sec : 70.4 cm/sec Med Peak E' Yifan : 125.0 cm/sec Ao max PG MV A max yifan PA mean PG : 14.2 mmHg : 107.1 cm/sec E/E' med: 11.9 Ao mean PG MV P1/2t: 101.1 msec Lat Peak E' Yifan PA Accel Time : 0.06 sec LVOT Max Yifan E/E' lat: 8.1 : 106.8 cm/sec E/e' average BILL(I,D): 2.0 cm sev ratio MV dec time MV P1/2t max yifan Ao V2 mean LV V1 max PG : 0.35 sec : 123.5 cm/sec MVA(P1/2t): 2.2 cm2 Ao V2 VTI: 37.2 cm LV V1 VTI BILL(V,D): 2.0 cm2 : 20.9 cm PA V2 mean BILL indexed to BSA : 82.8 cm/sec (cm^2/m^2): 1.0 Reading Physician:CLAUDIO
[2016-08-17 13:08] LABS: RNP Antibodies 0.4 AI (0.0-0.9)
--- NOTE | 2016-08-17 15:30 | PCM.PNNEPH ---
Subjective Date of Service August 17, 2016 Subjective The patient's blood pressure was somewhat improved. Neurologically he is unchanged. He denies any headache, chest pain or shortness of breath. Echocardiogram revealed an ejection fraction of 6065% with diastolic dysfunction. Exam Vital Signs Vital Sign - Last Date Time Temp Pulse Resp B/P Pulse Ox O2 Delivery O2 Flow Rate FiO2 08/17/16 08:20 36.4 69 16 156/88 99 08/17/16 05:25 Room Air Intake and Output 08/16/16 08/16/16 08/17/16 Cumulative From/Thru 14:59 22:59 06:59 08/14/16 17:28 - 08/17/16 05:25 Intake Total 300 ml 1366 ml Output Total 0 ml 1525 ml Balance 300 ml -159 ml Intake Oral 300 ml 1366 ml Output Urine Total 0 ml 1525 ml Exam Neck is supple without adenopathy, thyromegaly, or trigger venous distention. Lungs are clear to auscultation. Heart was regular and rhythmical with a soft systolic murmur. Abdomen soft without any tenderness rebound guarding masses or hepatosplenomegaly. Extremities show any evidence of any clubbing, cyanosis , or edema. Skin turgor is good. Lab and Diagnostics Result Diagram: 08/16/16 0320 08/17/16 0734 X-Rays, CTs and MRIs CT BRAIN WITHOUT CONTRAST 08/14 IMPRESSION: 1. Focal attenuation is present in the left occipital lobe suspicious for acute to subacute ischemia. No superimposed hemorrhage. 2. Moderate atrophy and chronic microvascular ischemic changes. Dictated by: Chery Morales M.D. on 08/14/2016 at 21:27 Approved by: Chery Morales M.D. on 08/14/2016 at 21:29 MRI BRAIN WITHOUT CONTRAST IMPRESSION: 1. Acute to subacute ischemia in the left occipital lobe without superimposed hemorrhage. 2. Mild atrophy and chronic microvascular ischemic changes. Dictated by: Chery Morales M.D. on 08/15/2016 at 13:58 US BILATERAL DUPLEX DOPPLER IMAGING OF THE CAROTIDS IMPRESSION: 1. There is greater than 70% stenosis in the right internal carotid artery via NASCET criteria. 2. There is 50-69% stenosis via NASCET criteria. 3. Findings discussed via telephone [phone] at 7:55 AM on 08/15/[address] Jazmin. Dictated by: Demetri Felder M.D. on 08/15/2016 at 7:47 Plan Impression Impression #1 hypertension with hypertensive heart disease hypertensive nephrosclerosis #2 CK D stage III #3 chronic interstitial nephritis Recommendations #1 I would like to increase his lisinopril to 10 mg at bedtime. Jermaine Turcios DO August 17, 2016 15:30
--- NOTE | 2016-08-17 16:53 | PCM.DIMED ---
Discharge Instructions Date of Service August 17, 2016 Dates of Hospitalization August 14, 2016 at 22:17 Discharge Diagnosis Discharge Diagnosis Occipital lobe CVA Diet Heart Healthy Activity No restrictions (The patient may resume usual activities gradually as tolerated. ) Call your provider Fever or Chills, Shortness of breath, Bleeding, Chest pain, Vomitting, Excessive diarrhea, Weakness (unilateral) Patient Instructions Follow-up Provider: [facility] Follow-up with PCP in: 1 week Provider: Maida Palomo MD Follow-up in: 2 weeks (The patient may need referral to a vascular specialist for possible right carotid endarterectomy.) Robbi Wu MD August 17, 2016 16:53
[2016-08-17] MEDS ORDERED: ATOR10TA66 PO (16:55)
[2016-08-17] MEDS ORDERED: LISI-571 PO (16:55)
[2016-08-17] MEDS ORDERED: LABE100T4 PO (16:55)
--- NOTE | 2016-08-17 22:02 | PCM.DC.MED ---
Discharge Summary Date of Service August 17, 2016 Dates of Hospitalization Date of Hospital Admission August 14, 2016 at 22:17 Date of Discharge: August 17, 2016 Providers: Admitting Physician: Tyrese Wharton MD Primary Care Physician: Maida Palomo MD Attending Physician: Tyrese Wharton MD Diagnosis at Time of Discharge Diagnosis at Time of Discharge Occipital lobe CVA Procedures XRay, CTs & MRIs CT BRAIN WITHOUT CONTRAST 08/14 IMPRESSION: 1. Focal attenuation is present in the left occipital lobe suspicious for acute to subacute ischemia. No superimposed hemorrhage. 2. Moderate atrophy and chronic microvascular ischemic changes. Dictated by: Chery Morales M.D. on 08/14/2016 at 21:27 Approved by: Chery Morales M.D. on 08/14/2016 at 21:29 MRI BRAIN WITHOUT CONTRAST IMPRESSION: 1. Acute to subacute ischemia in the left occipital lobe without superimposed hemorrhage. 2. Mild atrophy and chronic microvascular ischemic changes. Dictated by: Chery Morales M.D. on 08/15/2016 at 13:58 US BILATERAL DUPLEX DOPPLER IMAGING OF THE CAROTIDS IMPRESSION: 1. There is greater than 70% stenosis in the right internal carotid artery via NASCET criteria. 2. There is 50-69% stenosis via NASCET criteria. 3. Findings discussed via telephone [phone] at 7:55 AM on 08/15/[address] Wu. Dictated by: Demetri Felder M.D. on 08/15/2016 at 7:47 Brief History Juanjo Maya is a 81 yo male with Hypertension and Chronic Kidney disease presenting to [facility] emergency department complaining of confusion. Patient reported feeling well until yesterday morning she noticed some confusion. Patient reported it was hard for him to perform simple tasks around the house like forgetting where the water faucet was in his own house. Symptoms persisted throughout the day. He was aware of this happening and told his sister about this. He noted some deficit in his visual field on the right side. He denied any trouble with his speech and no weakness/numbness noted. He has been experiencing a headache in the L temporal region which he describes as dull. He also describes his SBP getting as high as 195. He does not take any Aspirin or Cholesterol medications currently. No previous Strokes or Myocardial infarction Patient decided to stop his clonidine completely 2 days ago despite instruction that this well be slowly weaned off. Clinic records reviewed: In June of 2014, he was found to have HTN and was started on Lisinopril 10 mg daily. His BP was well controlled until the medication was stopped due to rising of serum creatinine from 1.18 to 1.96. He was then initiated on other antihypertensive medications in which he had unpleasant reactions from them. Amlodipine caused severe LE swelling. HCTZ and metoprolol caused dizziness and syncopal episode. Patient was referred to for possible left renal artery stent placement. He ended up seeing a hemstitching machine operator at . A repeat renal Duplex showed no left artery stenosis, 11.5 cm, right renal atrophy identified, 7.5 cm. Lisinopril was restarted 5 mg daily. He was able to discontinue felodipine and clonidine patch. He is now taking clonidine 0.2 mg BID and lisinopril 5 mg daily. His BP has been improved ~ 130-140/70-80. Plan from Dr Rangel was to increase lisinopril to 10 mg daily and wean off on clonidine. Case discussed with Dr Hernández, CT showed Acute on Subacute left occipital lobe ischemia. She discussed the case with [place] neurology who recommended no TPA but admission to complete workup with a MRI without contrast Hospital Course Juanjo Maya is a 81 yo male with Hypertension and Chronic Kidney disease presenting to [facility] emergency department complaining of confusion. Currently under treatment and evaluation for a stroke. Hospital day #2. 1 Acute to subacute ischemia in the left occipital lobe. Present on admission. Active. Stroke risk factors includes age, Uncontrolled Hypertension and Family history of coronary artery disease. Patient not a candidate for TPA, [place] Neurology ward helper in this decision. Location of Stroke is consistent with current symptoms - MRI brain without contrast confirmed stroke - complete echo was unremarkable - Carotid ultrasound showing >70% stenosis on the right side. Patient will need outpatient consultation with vascular surgery. - Aspirin for antiplatelet and secondary prevention (Dr. Wharton discussed with patient daily Aspirin to prevent Strokes as well as immediately calling 911 for further Stroke symptoms in the future) - LDL above goal of 70, will start patient on statin. - Physical, Speech and Occupational therapy assessments completed 2 Acute Encephalopathy due to Stroke. Present on admission. Resolved No other causes identified such as Infection or Metabolic derangements - The patient is at high risk for delirium - Continue to avoid psychoactive medications such as Benzodiazepine and high dose narcotics 3 Uncontrolled Hypertension Suspect the patient has rebound hypertension a result of stopping Clonidine abruptly - Nephrology consulted to help with decision of antihypertensive agents. Per Dr. Turcios's recommendation we have started the patient on labetalol 100 mg every [address] Turcios also increase the patient's lisinopril from 5 mg a day to 10 mg by mouth daily at bedtime. - We have discussed the importance of BP control with patient to avoid another Stroke and follow instructions concerning medications, he verbalizes understanding. 4 Chronic Kidney disease Due to Hypertensive Nephrosclerosis. Currently at baseline renal function - We will avoid nephrotoxic insults and no contrast studies - Acetaminophen as needed for mild pain/fever/headache - Bowel regimen as needed - Antiemetic as needed Disposition: Patient will be discharged home today. He understands the importance of taking his medications. Exam Vital Signs (Last) Date Time Temp Pulse Resp B/P Pulse Ox O2 Delivery O2 Flow Rate FiO2 08/17/16 15:30 36.6 66 18 142/86 98 Room Air Exam General: Alert, Oriented X3, Cooperative, No acute Distress Eyes: PERRLA, Scleral Anicteric Mouth: Mouth Normal, Mucous Membranes Moist/Prichard Neck: Supple, no Thyromegaly, trachea central. Chest & Lungs: Clear to auscultation & percussion, No adventitious breath sounds, no crackles, no wheeze Cardiovascular: Normal S1, Normal S2, No Murmurs/Rubs/Gallops, Regular Rate/ Rhythm, (No JVD, no peripheral edema) Pulses: Radial (present and equal), Dorsalis Pedi (present and equal) Abdomen: Soft, Non-tender, Non-distended, Normoactive bowel tones. Musculoskeletal: Unremarkable. Normal range of motion, no swollen or erythematous joints Extremities: No edema, no cyanosis, no clubbing. Skin: No rashes. Warm and dry, no erythematous areas Lymphatic: Lymph nodes Cervical and Axillary not palpable. Neurological: Mental Status: Alert and oriented without slurred speech Cranial nerves: PERRL. Extraocular movements are intact with no nystagmus. The face is symmetric, tongue midline. Visual field Complete hemianopsia with loss of peripheral vision on the right. Normal tone of bilateral upper extremities. No gait deficit reported. Test 08/14/16 18:24 08/14/16 23:25 08/16/16 03:20 08/17/16 07:34 Hemoglobin A1c 5.9% (4.8-5.6) Triglycerides Level 175mg/dL (0-149) Cholesterol Level 185mg/dL (100-199) LDL Cholesterol, Calculated 112.000mg/dL (0-99) VLDL Cholesterol 35.000mg/dL HDL Cholesterol 38mg/dL (>39) Cholesterol/HDL Ratio 4.87 (0.0-4.4) Hold Zuñiga Top Tube Received (Received) Hold Urine Received (Received) White Blood Count 5.4th/mm3 (3.8-10.1) Red Blood Count 4.21mil/mm3 (4.40-5.80) Hemoglobin 13.0g/dL (13.8-17.2) Hematocrit 39.1% (41.0-50.0) Mean Corpuscular Volume 92.9fL (81-100) Mean Corpuscular Hemoglobin 30.9pg (27.0-35.0) Mean Corpuscular Hemoglobin Concent 33.2% (32.0-37.0) Red Cell Distribution Width 13.3% (12.3-15.4) Platelet Count 252bil/L (150-400) Neutrophils (%) (Auto) 49.8% (40-74) Lymphocytes (%) (Auto) 33.1% (14-46) Monocytes (%) (Auto) 11.2% (4-12) Eosinophils (%) (Auto) 5.5% (0-5) Basophils (%) (Auto) 0.4% (0-3) Erythrocyte Sedimentation Rate 32mm/hr (0-30) Uric Acid 7.0mg/dL (2.6-7.2) Phosphorus Level 3.7mg/dL (2.5-4.9) Magnesium Level 2.2mg/dL (1.6-2.6) Total Bilirubin 0.4mg/dL (0.0-1.2) Aspartate Amino Transf (AST/SGOT) 22U/L (0-50) Alanine Aminotransferase (ALT/SGPT) 15U/L (0-44) Alkaline Phosphatase 99U/L (25-160) Total Protein 7.1g/dL (6.4-8.4) Albumin 4.2g/dL (3.4-5.0) Anti-Nuclear Antibody Screen Positive (Negative) Anti-Nuclear Antibody Comment Comment (.) SS-A/Ro Antibody <0.2AI (0.0-0.9) SS-B/La Antibody <0.2AI (0.0-0.9) Sm (Teran) IgG Antibody, Quant <0.2AI (0.0-0.9) INCOME AUDITOR Antibody 0.4AI (0.0-0.9) Anti-Double Strand DNA Antibody 12IU/mL (0-9) Sodium Level 141mEq/L (134-144) Potassium Level 4.2mEq/L (3.5-5.2) Chloride Level 102mEq/L (97-108) Carbon Dioxide Level 25mmol/L (18-29) Blood Urea Nitrogen 43mg/dL (8-27) Creatinine 2.03mg/dL (0.76-1.27) Estimat Glomerular Filtration Rate 34mL/min (>59) Glucose Level 106mg/dL (60-99) Calcium Level 9.5mg/dL (8.5-10.1) Discharge Medications Discharge Medications Aspirin (Aspirin) 81 Mg Tablet 81 MG PO DAILY (Reported) Atorvastatin Calcium (Atorvastatin Calcium) 10 Mg Tablet 10 MG PO HS Prescribed by: SOUMYA WU MD Cholecalciferol (Vitamin D3) (Vitamin D3) 5,000 Unit Capsule 5,000 UNIT PO DAILY (Reported) Labetalol (Labetalol) 100 Mg Tablet 100 MG PO BID Prescribed by: SOUMYA WU MD Lisinopril (Lisinopril) 5 Mg Tablet 10 MG PO HS Prescribed by: SOUMYA WU MD As needed Polyethylene Glycol 3350 (Miralax) 17 Gm Powd.pack 17 GM PO DAILY PRN PRN For Constipation Prescribed by: JOHN WOLFE MD Followup Plan Disposition: Patient is being discharged home with his sister. Discharge Diet: Heart Healthy Discharge Activity: No restrictions (The patient may resume usual activities gradually as tolerated.) Follow[facility] Follow-up with PCP in: 1 week Provider: Maida Palomo MD Follow-up in: 2 weeks (The patient may need referral to a vascular specialist for possible right carotid endarterectomy.) Time spent Time spent on discharging this patient was greater than 35 minutes, over half of which was involved in counseling and coordination of care. Robbi Wu MD August 17, 2016 22:02
== END 2016-08-17 18:50 | disposition home health service (06) | DRG 64 ==
LOC: SED 17:21 → PCC 22:17
PROVIDERS: ADMIT Hospitalist; ATTEND Hospitalist
DX: I63.9 Cerebral infarction, unspecified (principal); G93.40 Encephalopathy, unspecified; N11.9 Chronic tubulo-interstitial nephritis, unspecified; I13.10 Hypertensive heart and chronic kidney disease without heart failure, with stage 1 through stage 4 chronic kidney disease, or unspecified chronic kidney disease; N18.3 Chronic kidney disease, stage 3 (moderate); M47.9 Spondylosis, unspecified; R47.01 Aphasia; H53.47 Heteronymous bilateral field defects; R40.2362 Coma scale, best motor response, obeys commands, at arrival to emergency department; R40.2142 Coma scale, eyes open, spontaneous, at arrival to emergency department; R40.2252 Coma scale, best verbal response, oriented, at arrival to emergency department; Z91.14 Patient's other noncompliance with medication regimen; Z79.82 Long term (current) use of aspirin; Z85.46 Personal history of malignant neoplasm of prostate

== ENCOUNTER 2016-09-23 07:57 | Emergency (ER) | payer MEDICARE ==
[~2016-09-23] VITALS: Ht 177.8 cm; Wt 77.3 kg
[~2016-09-23 07:57] MED LIST changes: +ATOR10TA66 PO; -CLON0.1T PO; -FELO2.5T8 PO; -HYDR-4003 PO; +LABE100T4 PO; +LISI-571 PO; -OXYC5TAB72 PO
[2016-09-23 08:00] VITALS: BP 105/61; PULSE 66; RESP 16; O2SAT 99
--- NOTE | 2016-09-23 08:10 | ED.REPORT ---
HPI-Abd Pain M 40 and Over Date of Service Sep 23, 2016 ED Provider: Sanya Enciso Patient is an 81 year old male with a hx of CVA who presents to the ED complaining of R sided groin pain onset 2-3 months ago that is worse since yesterday. He describes the pain as intermittently sharp and reports that there is a bulge at the site. He denies fever, dysuria, constipation, or any other symptoms. He has a doctors appt in 4 days. He has had similar symptoms previously on the L side. Nursing Notes Stated Complaint: POSSIBLE HERNIA PAIN Chief Complaint: Male Abdominal Pain Nursing Notes Reviewed: Yes Allergies: Coded Allergies: iodine (Verified Allergy, Severe, Anaphylaxis, 09/23/16) Scheduled Aspirin (Aspirin) 81 Mg Tablet 81 MG PO DAILY Atorvastatin Calcium (Atorvastatin Calcium) 10 Mg Tablet 10 MG PO HS Cholecalciferol (Vitamin D3) (Vitamin D3) 5,000 Unit Capsule 5,000 UNIT PO DAILY Labetalol (Labetalol) 100 Mg Tablet 100 MG PO BID Lisinopril (Lisinopril) 5 Mg Tablet 10 MG PO HS Scheduled PRN Polyethylene Glycol 3350 (Miralax) 17 Gm Powd.pack 17 GM PO DAILY PRN PRN For Constipation General Time Seen by MD: 08:09 Chief Complaint Inguinal pain right Hx Obtained From: Patient, Spouse Arrived By: Walk-in Sudden in Onset?: Yes Onset Occurred: Yesterday Symptom Duration: Since onset Similar Sx Previous: Yes Risk Factors )( AAA Risk Stratification HypertensionNo Smoking Risk factors reviewed Past Medical History Past Medical History Notes: Juan Carlos- nephrology Past Medical History Polio Kidney cancer Prostate CA CVA with memory and vision impairment Reports: Hypertension Past Surgical History hiatal hernia repair eye surgery @ age 5 Reports: Tonsillectomy Family History Heart disease in father, brothers and sister Sister and brother with "open heart surgery." Smoking History Never Smoker Social History Alcohol Use: 1-3 per week Drug Use: Denies drug use Other Social History: Good social support, From out of town, Visiting locally Occupation Works as a [employer] Ambulatory Status Independent Review of Systems Review of Systems Note: +groin pain, R Constitutional: Denies: Fever GI: Denies: Constipation Male: Denies Dysuria Complete sys rev & neg: except as marked. Physical Exam Initial Vital Signs Vital Signs (First) Date Time Temp Pulse Resp B/P Pulse Ox O2 Delivery O2 Flow Rate FiO2 09/23/16 08:00 36.4 66 16 105/61 99 Room Air Initial VS: Reviewed, Vital signs normal Head / Eyes: Atraumatic, Normocephalic Neck: Full range of motion Skin: Warm, Dry Neurologic: Alert, Oriented, Nonfocal General/Constitutional: Awake, Alert, Well appearing, Well developed Respiratory / Chest: Breath sounds NL, Breath sounds = bilat, No respiratory distress Cardiovascular: Heart rate NL, Regular rhythm, Heart sounds NL, No gallop, No murmurs, No rubs Abdomen: Soft Organomegaly / Mass / Hernia: Positive: Hernia inguinal R (reducible ) Back: Atraumatic Re-Eval/Medical Decision Med Decision/Clinical Course Clinically patient has a right inguinal hernia, it is fully reduced at rest is prominent with Valsalva and fully reduces afterward. Return and follow-up precautions given Time of Eval: 08:43 )( Re-Eval Abdomen: Soft Re-Evaluation/Progress Note: Rechecked pt. Discussed plan for discharge. Patient understands and agrees with plan. All questions addressed at this time. Counseled Regarding: Diagnosis, Need for follow-up, When/why to return to ED Discharge & Departure Primary Impression: Inguinal hernia Obstruction and gangrene presence: without obstruction or gangrene Laterality : unilateral Recurrence: not specified as recurrent Qualified Code: K40.90 - Unilateral inguinal hernia, without obstruction or gangrene, not specified as recurrent Disposition: Home Vital Signs - All Vital Signs Date Time Temp Pulse Resp B/P Pulse Ox O2 Delivery O2 Flow Rate FiO2 09/23/16 08:00 36.4 66 16 105/61 99 Room Air )( All Prior VS Reviewed: Yes Condition: Stable Patient Instructions: Inguinal Hernia (ED) Additional Instructions: Thank you for entrusting us with your care Do not lift objects over 5 lbs. Take care to not become constipated and take stool softeners if needed. Avoid coughing or sneezing. Go to the pharmacy and purchase a truss to prevent bulging. If the hernia bulges , lay down, relax, and gently push it back in. Keep your appointment with [facility] for an evaluation for surgery. Keep your appointment with your doctor for this week. Return to the emergency department if you have new or worsening symptoms. Referrals: Siddhartha Bains DO (PCP) Scribe Attestation Portions of this note were transcribed by Frieda Leal. I, Dr. Enciso personally performed the history, physical exam and medical decision-making; I reviewed and confirmed the accuracy of the information in the transcribed note. Signed by: Frieda Leal 09/23/16, 0854 copies to: Siddhartha Bains Timothy S DO Sep 23, 2016 08:10 FRIEDA LEAL Sep 23, 2016 08:20
== END 2016-09-23 09:00 | disposition home or self-care (01) ==
LOC: SED 07:57
DX: K40.90 Unilateral inguinal hernia, without obstruction or gangrene, not specified as recurrent (principal); I10 Essential (primary) hypertension; I69.311 Memory deficit following cerebral infarction; I69.398 Other sequelae of cerebral infarction; H54.7 Unspecified visual loss; Z79.82 Long term (current) use of aspirin; Z88.8 Allergy status to other drugs, medicaments and biological substances

== ENCOUNTER 2016-12-29 20:21 | Emergency (ER) | payer MEDICARE ==
[~2016-12-29] VITALS: Ht 180.3 cm; Wt 79.5 kg
[2016-12-29 20:36] VITALS: BP 204/95; PULSE 68; RESP 18; O2SAT 98
--- NOTE | 2016-12-29 21:58 | ED.REPORT ---
HPI-General Illness Date of Service Dec 29, 2016 ED Provider: Vaughn Ortiz MD The pt is an 81 y/o male w/ a hx of kidney cancer, prostate cancer, and a CVA presenting to the ED due to a high BP. He reports forgetting to take his morning HTN medications, and taking his evening medications, but did not take a Make-up dose for missing his morning medications. He reports his systolic BP being over 200. The pt had a CVA 4 months ago and experienced R sided vision loss and decreased balance. Nursing Notes Stated Complaint: HIGH BP Chief Complaint: High BP Nursing Notes Reviewed: Yes Allergies: Coded Allergies: iodine (Verified Allergy, Severe, Anaphylaxis, 12/29/16) Scheduled Aspirin (Aspirin) 81 Mg Tablet 81 MG PO DAILY Atorvastatin Calcium (Atorvastatin Calcium) 10 Mg Tablet 10 MG PO HS Cholecalciferol (Vitamin D3) (Vitamin D3) 5,000 Unit Capsule 5,000 UNIT PO DAILY Labetalol (Labetalol) 100 Mg Tablet 100 MG PO BID Lisinopril (Lisinopril) 5 Mg Tablet 10 MG PO HS Scheduled PRN Polyethylene Glycol 3350 (Miralax) 17 Gm Powd.pack 17 GM PO DAILY PRN PRN For Constipation General Time Seen by MD: 21:56 Chief Complaint Other (High BP ) Hx Obtained From: Patient Arrived By: Walk-in Sudden in Onset?: Yes Onset Occurred: Just prior to arrival Symptom Duration: Since onset Recent Healthcare: Recent doctor visit, Recent hospitalization Similar Sx Previous: Yes Past Medical History Past Medical History Notes: Juan Carlos- nephrology Past Medical History Polio Kidney cancer Prostate CA 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 Physical Exam Vital Signs Vital Signs Date Time Temp Pulse Resp B/P Pulse Ox O2 Delivery O2 Flow Rate FiO2 12/29/16 23:05 62 17 150/68 96 Room Air 12/29/16 20:36 37.2 68 18 204/95 98 Room Air Initial VS: Reviewed, Vital signs normal General/Constitutional: Well-developed, Well-nourished Head / Eyes: Atraumatic, Normocephalic, PERRL ENT: Mucous membranes moist, Conjunctiva normal, No scleral icterus Neck: Supple, Non-tender, Full range of motion Respiratory: Breath sounds normal, Clear to auscultation, No respiratory distress Cardiovascular: Regular rate & rhythm, Heart sounds normal, Intact distal pulses Extremities: Vascular intact, Neuro intact, No swelling, No tenderness Skin: Warm, Dry, No cyanosis Neurologic: Alert, Oriented, Nonfocal Psychiatric: Mood/affect normal, Behavior normal, Normal thought content Re-Eval/Medical Decision Med Decision/Clinical Course 81-year-old male who missed his doses of blood pressure medications this morning. His blood pressure was 205/95 upon arrival. He was given his morning medicines Source of Hx: Old records Time of Eval: 22:57 Re-Evaluation/Progress Note: Pt rechecked. Informed pt of plan for treatment. Pt understands and agrees with plan for treatment. F/U instructions and RTER warnings given. All questions addressed. Counseled Regarding: Diagnosis, Need for follow-up, When/why to return to ED Discharge & Departure Primary Impression: Hypertension Hypertension type: essential hypertension Qualified Code: I10 - Essential ( primary) hypertension Disposition: Home Discharge Condition All VS Reviewed: Yes Condition: Stable Patient Instructions: Hypertension (ED) Additional Instructions: Your blood pressure has now normalized. Resume your regular medications in the morning. Call me tonight at [phone] if you have any questions or concerns. Referrals: Emory Wooten MD (PCP) Scribe Attestation Portions of this note were transcribed by Marek Muller. I, Dr. Ortiz personally performed the history, physical exam and medical decision-making; I reviewed and confirmed the accuracy of the information in the transcribed note. copies to: Emory Wooten MD, Howard L MD Dec 29, 2016 21:58 Marek Muller Dec 29, 2016 22:04
[2016-12-29 23:05] VITALS: BP 150/68; PULSE 62; RESP 17; O2SAT 96
== END 2016-12-29 23:06 | disposition home or self-care (01) ==
LOC: SED 20:21
DX: I10 Essential (primary) hypertension (principal); Z86.73 Personal history of transient ischemic attack (TIA), and cerebral infarction without residual deficits; Z85.528 Personal history of other malignant neoplasm of kidney; Z85.46 Personal history of malignant neoplasm of prostate; Z79.82 Long term (current) use of aspirin; Z88.8 Allergy status to other drugs, medicaments and biological substances